=== PATIENT | male | born 1970 | race Caucasian/White ===

== ENCOUNTER → 2021-03-23 | Outpatient (CLI) | payer BC ==
[~2021-03-23] MED LIST: IOHEXOL 240 MG/ML 50ML VIAL. ONE; IOHEXOL 300 MG/ML 75 ML VIAL. IV ONE; IOHEXOL 300 MG/ML 75 ML VIAL. ONE
[2021-03-23 09:02] LABS: CREATININE 0.8 mg/dL (0.7-1.3); GFR 103.2
--- NOTE | 2021-03-23 11:06 | RAD ---
EXAMINATION: CT ABDOMEN+PELVIS W CLINICAL HISTORY: Left lower quadrant pain. Epigastric pain x4 weeks. TECHNIQUE: CT of the abdomen and pelvis was performed using standard technique, scanning from just ab ove the dome of the diaphragm to the symphysis pubis following administration of intravenous contrast . CT Dose Reduction Employed: One or more of the following individualized dose reduction techniques wer e utilized for this examination: 1. Automated exposure control 2. Adjustment of the mA and/or kV ac cording to patient size 3. Use of iterative reconstruction technique. COMPARISON: None FINDINGS: Minimal subsegmental atelectasis and/or scarring in the lingula. Lung bases otherwise clear. Diffuse hypoattenuation of the hepatic parenchyma, compatible with steatosis. Minimal calcification a long the hepatic dome. Gallbladder, pancreas, spleen, and adrenal glands unremarkable. Several left renal sinus cysts suggested. Kidneys otherwise unremarkable. Mildly filled urinary bladder. Central prostatic calcifications. No bowel dilation or definite wall thickening. Minimal colonic diverticulosis. Appendix within normal limits. No abdominal aortic or iliac artery aneurysm. Multilevel thoracolumbar degenerative changes. Remote bilateral L5 spondylolysis with grade 1 L5-S1 a nterolisthesis. Degenerative changes in the bilateral SI joints, asymmetrically prominent on the righ t with partial ankylosis. IMPRESSION: No evidence of acute abdominopelvic abnormality. Mild hepatic steatosis. 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 Additional nonacute findings as described. Electronically signed by: Obdulio Vaughan DO (03/23/2021 11:04 AM) [facility]
== END ==
LOC: CT 08:20
PROVIDERS: ATTEND Family Medicine
DX: K76.0 Fatty (change of) liver, not elsewhere classified (principal); N42.89 Other specified disorders of prostate; M47.815 Spondylosis without myelopathy or radiculopathy, thoracolumbar region; M43.16 Spondylolisthesis, lumbar region; M46.1 Sacroiliitis, not elsewhere classified; M24.69 Ankylosis, other specified joint
CPT/HCPCS: 36415; 74177; 82565; 84520; Q9967